=== PATIENT | male | born 1955 | race Caucasian/White ===

== ENCOUNTER 2024-03-07 13:12 | Emergency (ER) | payer MEDICARE, OTHER ==
[2024-03-07] MEDS ORDERED: Lidocaine 1% w/Epinephrine 1:100K 20 ML VIAL ONE (13:33)
[2024-03-07] MEDS ORDERED: Bacitracin 1 PK ONE (14:11)
== END 2024-03-07 14:25 | disposition home or self-care (01) ==
LOC: NAV ERS 13:12
DX: S51.012A Laceration without foreign body of left elbow, initial encounter (principal); F17.210 Nicotine dependence, cigarettes, uncomplicated; J44.9 Chronic obstructive pulmonary disease, unspecified; W19.XXXA Unspecified fall, initial encounter
CPT/HCPCS: 12004